=== PATIENT | female | born 1965 | race Caucasian/White ===

== ENCOUNTER 2022-11-06 08:46 | Day surgery (SDC) | payer OTHER ==
[~2022-11-06] VITALS: Ht 165.1 cm; Wt 140.6 kg
[~2022-11-06 08:46] MED LIST: ACETAMINOPHEN 500 MG TABLET PO ONE; CEFAZOLIN SOD 2 GM in D5W 50 ML IV ONE; HYDROcodone/ACETAMIN 5-325 MG TAB (NORCO/ VICODIN) PO ONE; SCOPOLAMINE HYDROBROMIDE 1 MG PATCH .72 H (TRANSDERM-SCOP) TD ONE
[2022-11-06] MEDS ORDERED: PROPOFOL 200MG/ 20ML VIAL (DIPRIVAN) IV ONE (11:04)
[2022-11-06] MEDS ORDERED: HYDROmorphone 2 MG/ML VIAL ONE (11:04)
[2022-11-06] MEDS ORDERED: fentaNYL CITRATE/PF 100 MCG/2 ML AMP ONE (11:04)
[2022-11-06] MEDS ORDERED: WATER FOR IRRIGATION,STERILE 1,000 ML IRRIG.SOLN IR ONE (11:04)
[2022-11-06] MEDS ORDERED: DESFLURANE 15 MIN GAS INH ONE (11:04)
[2022-11-06] MEDS ORDERED: ONDANSETRON HCL 4 MG/2 ML VIAL ONE (11:04)
[2022-11-06] MEDS ORDERED: DEXAMETHASONE SOD PHOSPHATE 4 MG/ML VIAL ONE (11:04)
[2022-11-06] MEDS ORDERED: LR 1,000 ML IV.SOLN IV ONE (11:04)
[2022-11-06] MEDS ORDERED: NS IRRIG SOLN 1000 ML IR ONE (11:04)
[2022-11-06] MEDS ORDERED: KETOROLAC TROMETHAMINE 30 MG VIAL ONE (11:04)
[2022-11-06] MEDS ORDERED: BUPIVACAINE /PF 0.25% 30 ML VIAL INJ ONE (11:04)
[2022-11-06 11:32] VITALS: O2SAT 99
[2022-11-06] MEDS ORDERED: ACETAMINOPHEN I.V. 1000 MG 100 ML IV ONE (12:44)
[2022-11-06] MEDS ORDERED: HYDROmorphone 1 MG/ML INJ. CARTRIDGE IVP PRN ×2 (13:00)
[2022-11-06] MEDS ORDERED: ONDANSETRON HCL 4 MG/2 ML VIAL IVP PRN (13:00)
[2022-11-06 14:55] VITALS: BP_SYST 152; PULSE 80; RESP 18
== END 2022-11-06 16:05 | disposition home or self-care (01) ==
LOC: SDS 08:46 → SMU 08:50 → SDS 10:06 → SMU 10:06 → SDS 16:05
PROVIDERS: ATTEND Orthopaedic Surgery Sports Medicine
DX: S52.501A Unspecified fracture of the lower end of right radius, initial encounter for closed fracture (principal); I10 Essential (primary) hypertension; W19.XXXA Unspecified fall, initial encounter; Y93.89 Activity, other specified; Y92.89 Other specified places as the place of occurrence of the external cause; Y99.8 Other external cause status
CPT/HCPCS: 87081; 25609; 76000; C1713 ×6; J3490; J0690; J1100; J1885; J2405; J2704; J3010; J1170; J7060; J7120; C1769; J0131; 76001